=== PATIENT | female | born 1940 | race Caucasian/White ===

== ENCOUNTER 2024-07-13 08:32 | Outpatient (CLI) | payer MEDICARE, MEDICAID ==
[2024-07-13] MEDS ORDERED: Iopamidol 370 76% 100 ML VIAL ONE (14:27)
== END 2024-07-13 08:33 | disposition home or self-care (01) ==
LOC: CSHCT 08:32 → EDSTATUS 09:00
PROVIDERS: ATTEND Psychiatry & Neurology Neurology
DX: I65.23 Occlusion and stenosis of bilateral carotid arteries (principal); R41.3 Other amnesia; R90.82 White matter disease, unspecified; G93.89 Other specified disorders of brain; I67.89 Other cerebrovascular disease
CPT/HCPCS: 36415; 70496; 70498; 70551; 82565; Q9967

== ENCOUNTER 2025-03-30 18:14 | Emergency (ER) | payer MEDICARE, MEDICAID ==
[2025-03-30] MEDS ORDERED: Bacitracin 1 PK ONE (19:07)
== END 2025-03-30 23:15 ==
LOC: CSHERS 18:14
DX: S51.012A Laceration without foreign body of left elbow, initial encounter (principal); I11.0 Hypertensive heart disease with heart failure; I50.9 Heart failure, unspecified; W19.XXXA Unspecified fall, initial encounter
CPT/HCPCS: 70450; 93005